=== PATIENT | female | born 1970 | race Caucasian/White ===

== ENCOUNTER 2024-09-16 14:10 | Emergency (ER) | payer OTHER, SELFPAY ==
--- NOTE | 2024-09-16 14:12 | ED.GENMED ---
ED Provider Triage
<Rosemary Song PA-C - Last Filed: 09/16/24 14:15>
-
Patient seen by provider in Triage?: Seen in Triage
Attestation: A medical screening examination has been initiated by a qualified medical provider. Based on the assessment performed at this time, it has been determined that an emergent medical condition may exist and the patient has been informed
that further medical evaluation and possible additional diagnostic testing may be needed.
HPI: 54yoF here with R flank pain x 2 days. Feels like prior kidney stones. No n/v or urinary symptoms. Traveling to [place] tomorrow and wants to get checked out.
GENERAL: Alert , in no apparent distress
EYE: No visual abnormalities.
NECK: Trachea midline
ENT: No visible abnormalities.
LUNGS: No acute respiratory distress
NEUROLOGICAL: Alert and oriented
SKIN: Skin intact. No visible changes.
MUSCULOSKELETAL: Moving extremities normally
PSYCH: Normal and appropriate interaction.
This is a medical evaluation conducted in person to initiate diagnostic evaluation and provide initial therapeutics. Please see further documentation by the treating clinician.
CBC, CMP, UA, and CT abdomen ordered.
History of Present Illness
<Rosemary Song PA-C - Last Filed: 09/16/24 14:15>
General
Chief Complaint: Flank Pain
Time Seen by Provider: 09/16/24 14:46
<Scooby Ahuja PA-C - Last Filed: 09/16/24 17:52>
History of Present Illness
History of Present Illness:
54-year-old female presents to the emergency department for evaluation of right flank pain ongoing for the past 3 days. Pain is similar to prior kidney stones. Denies any associated fevers or chills. No lower urinary tract voiding symptoms. No
nausea vomiting or diarrhea.
Past History
<Rosemary Song PA-C - Last Filed: 09/16/24 14:15>
Past History
ED Past Medical History: Hypothyroidism and Other (Kidney stones)
ED Past Surgical History: Urological
Social History
Tobacco: Non-smoker
Alcohol: None
Drug: None
Review of Systems
<Scooby Ahuja PA-C - Last Filed: 09/16/24 17:52>
Review of Systems
Allergies reviewed?: Yes
All Other Systems: ROS reviewed and negative except as documented in HPI and ROS
Phy Exam
<Scooby Ahuja PA-C - Last Filed: 09/16/24 17:52>
Physical Exam
Physical Exam:
GEN: Well appearing, NAD, WDWN
HEENT: Oral mucosa moist, no scleral icterus
Cardiac: Regular rate
Lung: No respiratory distress, no tachypnea
MSK: No gross deformity or injuries
Skin: Good color, no pallor or jaundice, no rashes
Neuro: AO x3, moves all extremities freely
Psych: Calm, cooperative
Course
<Rosemary Song PA-C - Last Filed: 09/16/24 14:15>
Orders/Labs/Results
Orders:
Orders
09/16/24 14:14
CT Abd/pel Without Iv Or Oral Urgent
Comment:
Reason For Exam: R flank pain
09/16/24 14:19
Complete Blood Count/With Diff Urgent
Comprehensive Metabolic Panel Urgent
Urinalysis Reflex To Culture Urgent
Date Specimen was Collected: 09/16/24
Time Specimen was Collected: 14:15
Urine Microscopic Reflex Cult Urgent
Urine Culture Urgent
MIROSLAVA Source: U
Specimen Description:
Date Specimen was Collected: 09/16/24
Time Specimen was Collected: 14:15
Abnormal Lab Results
09/16/24
14:19
RBC 5.42 H 10^6/uL
(4.20-5.40)
Leukocyte Esterase Rfl 1+ A
(Negative)
Urine Bacteria (Reflex) Few A
(Negative)
09/16/24 14:19
09/16/24 14:19
Vital Signs
Initial and Last Documented VS:
Initial Vital Signs
Temp Pulse Resp BP Pulse Ox
98.2 F 85 17 120/91 98
09/16/24 14:13 09/16/24 14:13 09/16/24 14:13 09/16/24 14:13 09/16/24 14:13
Last Documented Vital Signs
Temp Pulse Resp BP Pulse Ox
98.2 F 85 17 120/91 98
09/16/24 14:13 09/16/24 14:13 09/16/24 14:13 09/16/24 14:13 09/16/24 14:13
<Scooby Ahuja PA-C - Last Filed: 09/16/24 17:52>
Orders/Labs/Results
Orders:
Orders
09/16/24 14:14
CT Abd/pel Without Iv Or Oral Urgent
Comment:
Reason For Exam: R flank pain
09/16/24 14:19
Complete Blood Count/With Diff Urgent
Comprehensive Metabolic Panel Urgent
Urinalysis Reflex To Culture Urgent
Date Specimen was Collected: 09/16/24
Time Specimen was Collected: 14:15
Urine Microscopic Reflex Cult Urgent
Urine Culture Urgent
MIROSLAVA Source: U
Specimen Description:
Date Specimen was Collected: 09/16/24
Time Specimen was Collected: 14:15
Abnormal Lab Results
09/16/24
14:19
RBC 5.42 H 10^6/uL
(4.20-5.40)
Leukocyte Esterase Rfl 1+ A
(Negative)
Urine Bacteria (Reflex) Few A
(Negative)
09/16/24 14:19
09/16/24 14:19
Vital Signs
Initial and Last Documented VS:
Initial Vital Signs
Temp Pulse Resp BP Pulse Ox
98.2 F 85 17 120/91 98
09/16/24 14:13 09/16/24 14:13 09/16/24 14:13 09/16/24 14:13 09/16/24 14:13
Last Documented Vital Signs
Temp Pulse Resp BP Pulse Ox
98.2 F 85 17 120/91 98
09/16/24 14:13 09/16/24 14:13 09/16/24 14:13 09/16/24 14:13 09/16/24 14:13
<Scooby Ahuja PA-C - Last Filed: 09/16/24 17:52>
MDM/Problems Addressed
MDM/Problems Addressed:
Imaging unremarkable. Given that she does have some degree of pyuria with associated flank pain we will treat this as potential mild pyelonephritis however musculoskeletal etiology is favored. Discussed supportive care and return parameters
<Scooby Ahuja PA-C - Last Filed: 09/16/24 17:52>
*Critical Care Note
Total Time (30-74mins, 75-104mins- exclusive of procedures): Not Applicable
ED Attending Note
<Rosemary Song PA-C - Last Filed: 09/16/24 14:15>
-
Portions of this chart may have been created with voice recognition software.� Occasional wrong word or��sound alike� substitutions may have occurred due to the inherent limitations of voice recognition software.
Discharge Plan
Departure
Patient Disposition: Home (Routine Discharge)
Date of Disposition: 09/16/24
Time of Disposition: 16:04
Patient with high blood pressure during this ER visit?: No
Discharge Problem:
Acute right flank pain
Instructions: Flank Pain (DC)
Prescriptions:
New
sulfamethoxazole-trimethoprim [Bactrim DS] 800-160 mg tablet
1 tab PO BID Qty: 14 0RF
No Action
Excedrin Aspirin Free 500-65 mg Tablet
1 tab PO DAILYPRN PRN (Reason: mild pain)
levothyroxine [Synthroid] 88 mcg Tablet
88 mcg PO DAILY
Wegovy 1.7 mg/0.75 mL Pen Injector
1.7 mg SC TH
docusate sodium 100 mg Capsule
300 mg PO DAILYPRN PRN (Reason: constipation)
cefdinir 300 mg capsule
300 mg PO BID Qty: 14 0RF
ondansetron 4 mg tablet,disintegrating
4 mg PO Q8H PRN (Reason: nausea and vomiting) Qty: 10 0RF
hydrocodone-acetaminophen 5-325 mg tablet
1 tab PO TID PRN (Reason: Pain) Qty: 10 0RF
Referrals:
Ruslan Pacheco MD [Family Provider] -
Activity Restrictions/Additional Instructions:
Take over the counter ibuprofen 600mg every 6-8 hours for pain control
Interventions
Interventions:
*Risk Screen - Suicide Last Done: 09/16/24 14:14
*General Assessment Last Done: 09/16/24 14:14
*Neglect/Abuse Screening Last Done: 09/16/24 14:14
*ED COVID-19 Vaccine History Last Done: 09/16/24 14:14
*Nursing Disposition Last Done: 09/16/24 16:24
DL-[facility]-Aflwh[facility] Assessment Last Done: 09/16/24 15:30
ED-Female Genitourinary Assessment Last Done: 09/16/24 15:30
Discharge Date and Time
Discharge Date/Time: 09/16/24 16:24
Print Language: MALAY
[2024-09-16 14:13] VITALS: BP 120/91
[2024-09-16 14:30] LABS: Urine Albumin Negative (Neg - Trace); Urine Bilirubin Negative (Negative); Urine Character Clear (Clear); Urine Color Yellow; Urine Glucose Negative (Negative); Urine Ketone Negative (Negative); Urine Leukocyte 1+ (Negative); Urine Nitrite Negative (Negative); Urine Occult Blood Negative (Negative); Urine Specific Gravity 1.025 (<1.030); Urine Urobilinogen Negative (Neg - 1+)
[2024-09-16 14:37] LABS: % Eosinophils 3.1 % (0-6); % Immature Granulocytes 0.2 % (0-0.5); % Lymphocytes 22.3 % (20.5-51.1); % Neutrophils 67.4 % (42.2-75.2); Absolute Basophils 0.1 10^3/uL (0-0.2); Absolute Eosinophils 0.2 10^3/uL (0-0.7); Absolute Lymphocytes 1.3 10^3/uL (1.2-3.4); Absolute Monocytes 0.4 10^3/uL (0.1-0.6); Absolute Neutrophils 3.9 10^3/uL (1.4-6.5); Hematocrit 44.5 % (37.0-47.0); Hemoglobin 15.2 g/dL (12.0-16.0); Mean Corp Hgb Conc. 34.2 g/dL (33.0-37.0); Mean Corpuscular Volume 82.1 fL (81.0-99.0); Mean Platelet Volume 9.1 fL (7.4-10.4); Nucleated Red Blood Cells % 0 %; Platelet Count 261 10^3/uL (130-400); Red Blood Cell Count 5.42 10^6/uL (4.20-5.40); White Blood Cell Count 5.8 10^3/uL (4.8-10.8)
[2024-09-16 14:43] LABS: Urine Mucus Few
[2024-09-16 14:44] LABS: Urine Bacteria Few (Negative); Urine Red Blood Cell 0-2 /HPF (0-2)
[2024-09-16 14:49] LABS: ALT (SGPT) 15 U/L (0-35); AST (SGOT) 20 U/L (14-36); Albumin 4.5 g/dl (3.5-5.0); Alkaline Phosphatase 67 U/L (38-126); Blood Urea Nitrogen 15 mg/dl (7-17); Calcium 9.3 mg/dl (8.4-10.2); Carbon Dioxide 27 mmol/L (22-30); Chloride 103 mmol/L (98-107); Glucose 89 mg/dl (70-99); Potassium 4.1 mmol/L (3.5-5.1); Sodium 139 mmol/L (135-145); Total Bilirubin 0.5 mg/dl (0.2-1.3); Total Protein 6.9 g/dl (6.3-8.2); eGFR > 60.00
== END 2024-09-16 16:24 | disposition home or self-care (01) ==
LOC: EMR 14:10
PROVIDERS: Physician Assistant; EMERGENCY PHYSICIAN Emergency Medicine; FAMILY PHYSICIAN Student in an Organized Health Care Education/Training Program
DX: R10.9 Unspecified abdominal pain (principal); R82.81 Pyuria; E03.9 Hypothyroidism, unspecified; Z87.442 Personal history of urinary calculi; N83.202 Unspecified ovarian cyst, left side
CPT/HCPCS: 99284; 74176; 80053; 81003; 81015; 85025; 87086